=== PATIENT | female | born 1995 | race Caucasian/White ===

== ENCOUNTER 2019-12-25 15:37 | Outpatient (CLI) | payer BC ==
--- NOTE | 2019-12-25 16:05 | XRay Report ---
Left knee 2 views INDICATION / CLINICAL INFORMATION: PAIN IN LEFT KNEE. COMPARISON: None available. FINDINGS: BONES/JOINT(S): No acute fracture or subluxation. No significant degenerative changes. SOFT TISSUES: No significant abnormality. ADDITIONAL FINDINGS: None. Signer Name: Adriel Barbour MD Signed: 12/25/2019 4:00 PM Workstation Name: [id number]
== END 2019-12-25 15:38 | disposition home or self-care (01) ==
LOC: XRAY 15:37
PROVIDERS: ATTEND Internal Medicine
DX: M25.562 Pain in left knee (principal)